=== PATIENT | female | born 1965 | race Two or more races ===

== ENCOUNTER 2024-11-28 11:51 | Inpatient (IN) | payer OTHER ==
[~2024-11-28] VITALS: Ht 167.6 cm; Wt 117.9 kg
[~2024-11-28 11:51] MED LIST: AMOX1TAB16 PO; DOXY100C2 PO
[2024-11-28 12:56] LABS: BASOPHILS # (AUTO) 0.1 K/uL (0.0-0.2); BASOPHILS % (AUTO) 0.5 % (0.0-2.0); EOSINOPHILS # (AUTO) 0.2 K/uL (0.0-0.7); EOSINOPHILS % (AUTO) 1.7 % (0.0-6.0); HEMATOCRIT 25 % (33-45); HEMOGLOBIN 8.3 g/dL (11.5-14.8); LYMPHOCYTES # (AUTO) 1.2 K/uL (0.8-4.8); LYMPHOCYTES % (AUTO) 11.3 % (20.0-44.0); MEAN CORPUSCULAR HEMOGLOBIN 33 PG (26.0-33.0); MEAN CORPUSCULAR HGB CONC 33 g/dl (31.0-36.0); MEAN CORPUSCULAR VOLUME 99 fL (82-100); MONOCYTES # (AUTO) 1.1 K/uL (0.1-1.30); NEUTROPHILS # (AUTO) 7.9 K/uL (1.8-8.9); NEUTROPHILS % (AUTO) 75.5 % (43.0-81.0); PLATELET COUNT (AUTO) 149 K/uL (150-450); RED BLOOD CELL COUNT(AUTO) 2.52 MIL/uL (4.0-5.2); WHITE BLOOD COUNT (AUTO) 10.5 K/uL (4.3-11.0)
[2024-11-28 13:09] LABS: CALCIUM, SERUM 8.1 mg/dL (8.5-10.1); CARBON DIOXIDE 30 mmol/L (21-32); CHLORIDE 97 mmol/L (98-107); CREATININE 3.3 mg/dL (0.6-1.3); GLUCOSE 103 mg/dL (74-106); POTASSIUM 3.8 mmol/L (3.5-5.1); SODIUM SERUM 137 mmol/L (136-145); UREA NITROGEN, BLOOD 23 mg/dL (7-18)
[2024-11-28] MEDS: IV NS 0.9% 1,000 ML BAG IV ONE (14:30)
[2024-11-28] MEDS ORDERED: ASPI-1420 PO (16:09)
[2024-11-28] MEDS ORDERED: CALC0.253 PO (16:09)
[2024-11-28] MEDS ORDERED: MIDO5TAB4 PO (16:09)
[2024-11-28] MEDS ORDERED: FLUD0.1T PO (16:09)
[2024-11-28] MEDS ORDERED: IPRA3AMP23 NEB (16:09)
[2024-11-28] MEDS ORDERED: FOLI0.8T23 PO (16:09)
[2024-11-28] MEDS ORDERED: METO25TA4 PO (16:09)
[2024-11-28] MEDS ORDERED: ERGO500093 PO (16:09)
[2024-11-28] MEDS ORDERED: LEVO150T8 PO (16:09)
[2024-11-28] MEDS ORDERED: FERR325T23 PO (16:09)
[2024-11-28] MEDS: ACETAMINOPHEN ES 500 MG TABLET PO ONE (16:15)
[2024-11-28] MEDS ORDERED: ACETAMINOPHEN ES 500 MG TABLET ONE (16:27)
[2024-11-28 18:00] VITALS: BP 108/60; TEMP 97.9; O2SAT 96
[2024-11-28] MEDS ORDERED: Z GUARD REMEDY 4 OZ OINT TP PRN (18:30)
[2024-11-28] MEDS ORDERED: ONDANSETRON HCL/PF 4 MG/2 ML VIAL IVP PRN (18:30)
[2024-11-28] MEDS ORDERED: ZOLPIDEM TARTRATE 5 MG TABLET PO PRN (18:30)
[2024-11-28 20:00] VITALS: BP 93/43; TEMP 97.7; O2SAT 100
[2024-11-28] MEDS: IV NS 0.9% 1,000 ML IV PRN (20:45)
[2024-11-28] MEDS: ACETAMINOPHEN 325 MG TABLET PO PRN (21:36)
[2024-11-29] VITALS: BP 98/44; TEMP 97.7; O2SAT 100
[2024-11-29 02:41] LABS: OCCULT BLOOD STOOL POSITIVE (NEGATIVE)
[2024-11-29 04:00] VITALS: BP 115/45; TEMP 98.1; O2SAT 99
[2024-11-29] MEDS: PANTOPRAZOLE 40 MG TABLET.DR PO SCH (07:30)
[2024-11-29 07:38] LABS: BASOPHILS % (AUTO) 0.6 % (0.0-2.0); EOSINOPHILS # (AUTO) 0.2 K/uL (0.0-0.7); EOSINOPHILS % (AUTO) 3.1 % (0.0-6.0); HEMATOCRIT 23 % (33-45); HEMOGLOBIN 7.5 g/dL (11.5-14.8); LYMPHOCYTES # (AUTO) 1.1 K/uL (0.8-4.8); LYMPHOCYTES % (AUTO) 13.2 % (20.0-44.0); MEAN CORPUSCULAR HEMOGLOBIN 33 PG (26.0-33.0); MEAN CORPUSCULAR HGB CONC 32 g/dl (31.0-36.0); MEAN CORPUSCULAR VOLUME 101 fL (82-100); MONOCYTES # (AUTO) 1.1 K/uL (0.1-1.30); MONOCYTES % (AUTO) 14.1 % (2.0-12.0); NEUTROPHILS # (AUTO) 5.6 K/uL (1.8-8.9); PLATELET COUNT (AUTO) 165 K/uL (150-450); RED BLOOD CELL COUNT(AUTO) 2.29 MIL/uL (4.0-5.2); RED CELL DISTRIBUTION WIDTH 24.9 % (11.5-15.0); WHITE BLOOD COUNT (AUTO) 8.1 K/uL (4.3-11.0)
[2024-11-29 07:52] LABS: THYROID STIMULATING HORMONE 43.39 uIU/mL (0.358-3.74)
[2024-11-29 07:59] LABS: CALCIUM, SERUM 8.1 mg/dL (8.5-10.1); CREATININE 3.9 mg/dL (0.6-1.3); MAGNESIUM 2.2 mg/dL (1.8-2.4); PHOSPHORUS 2.6 mg/dL (2.5-4.9)
[2024-11-29 08:00] VITALS: BP 112/30; TEMP 98; O2SAT 92
[2024-11-29] MEDS: DAKINS QUARTER STRENGTH (0.125%) 480 ML BOTTLE TOP SCH (10:21)
[2024-11-29] MEDS: THERAHONEY GEL 1.5 OZ TUBE TP SCH (10:22)
[2024-11-29 11:22] LABS: ANISOCYTOSIS 1+; EOSINOPHILS % (MANUAL) 5 % (0-4); HYPOCHROMASIA 1+; LYMPHOCYTES % (MANUAL) 9 % (16-48); MONOCYTES % (MANUAL) 9 % (0-11.0); MYELOCYTES % 1 % (0-0); NEUTROPHILS % (MANUAL) 76 (42-76); PLATELET ESTIMATE ADEQUATE
[2024-11-29 11:23] LABS: TARGET CELLS 1+
[2024-11-29 12:00] VITALS: BP 102/48; TEMP 97.9; O2SAT 95
[2024-11-29] MEDS: LEVOTHYROXINE SODIUM 75 MCG TABLET PO SCH (14:30)
[2024-11-29 16:00] VITALS: BP 96/83; TEMP 98.1; O2SAT 95
[2024-11-29] MEDS: FLUDROCORTISONE 0.1 MG TABLET PO SCH (17:06)
[2024-11-29] MEDS: FERROUS SULFATE (325 MG) 325 MG/TAB TABLET PO SCH (17:06)
[2024-11-29] MEDS: MIDODRINE HCL (5MG) 5 MG TABLET PO SCH (17:31)
[2024-11-29 20:00] VITALS: BP 93/65; TEMP 98.2; O2SAT 100
[2024-11-30] VITALS: BP 107/54; TEMP 98.2; O2SAT 100
[2024-11-30 04:00] VITALS: BP 97/56; TEMP 97.9; O2SAT 98
[2024-11-30 07:00] LABS: BASOPHILS % (AUTO) 0.6 % (0.0-2.0); EOSINOPHILS # (AUTO) 0.3 K/uL (0.0-0.7); EOSINOPHILS % (AUTO) 3.2 % (0.0-6.0); HEMATOCRIT 24 % (33-45); HEMOGLOBIN 7.8 g/dL (11.5-14.8); LYMPHOCYTES # (AUTO) 1.2 K/uL (0.8-4.8); LYMPHOCYTES % (AUTO) 15.3 % (20.0-44.0); MEAN CORPUSCULAR HEMOGLOBIN 33 PG (26.0-33.0); MEAN CORPUSCULAR HGB CONC 33 g/dl (31.0-36.0); MEAN CORPUSCULAR VOLUME 100 fL (82-100); MONOCYTES # (AUTO) 1.4 K/uL (0.1-1.30); MONOCYTES % (AUTO) 17.4 % (2.0-12.0); NEUTROPHILS # (AUTO) 5.2 K/uL (1.8-8.9); NEUTROPHILS % (AUTO) 63.5 % (43.0-81.0); PLATELET COUNT (AUTO) 159 K/uL (150-450); RED BLOOD CELL COUNT(AUTO) 2.39 MIL/uL (4.0-5.2); RED CELL DISTRIBUTION WIDTH 25.8 % (11.5-15.0); WHITE BLOOD COUNT (AUTO) 8.1 K/uL (4.3-11.0)
[2024-11-30 07:12] LABS: CALCIUM, SERUM 8.1 mg/dL (8.5-10.1); CREATININE 4.7 mg/dL (0.6-1.3); MAGNESIUM 2.2 mg/dL (1.8-2.4); PHOSPHORUS 2.8 mg/dL (2.5-4.9); POTASSIUM 3.7 mmol/L (3.5-5.1)
[2024-11-30 08:00] VITALS: BP 110/47; TEMP 99.7; O2SAT 99
[2024-11-30] MEDS: FOLIC ACID 1 MG TABLET PO SCH (08:50)
[2024-11-30] MEDS: ASPIRIN EC 81 MG TABLET.DR PO SCH (08:50)
[2024-11-30] MEDS: CALCITRIOL 0.25 MCG CAPSULE PO SCH (08:50)
[2024-11-30] MEDS: METOPROLOL SUCCINATE 25 MG TAB.SR.24H PO SCH (08:51)
[2024-11-30] MEDS: ENSURE ENLIVE 237 ML LIQUID (VANILLA) PO SCH (09:00)
[2024-11-30 10:25] LABS: ANISOCYTOSIS 1+; EOSINOPHILS % (MANUAL) 3 % (0-4); HYPOCHROMASIA 1+; LYMPHOCYTES % (MANUAL) 10 % (16-48); MONOCYTES % (MANUAL) 25 % (0-11.0); NEUTROPHILS % (MANUAL) 62 (42-76); PLATELET ESTIMATE ADEQUATE
[2024-11-30 12:00] VITALS: BP 105/44; TEMP 98.8; O2SAT 99
[2024-11-30] MEDS ORDERED: ALBUMIN 25% 25 GM in PREMIX 1 EA IV PRN (13:30)
[2024-11-30 16:00] VITALS: BP 120/66; TEMP 99.5; O2SAT 94
[2024-11-30 18:31] VITALS: BP 104/55; TEMP 99; O2SAT 99
== END 2024-11-30 18:44 | disposition home health service (06) | DRG 280 ==
LOC: ER 12:03 → TELE1 17:22
PROC: 5A1D70Z Performance of Urinary Filtration, Intermittent, Less than 6 Hours Per Day (ICD-10-PCS; principal; 2024-11-30)
DX: I95.3 Hypotension of hemodialysis (principal); L89.313 Pressure ulcer of right buttock, stage 3; I21.A1 Myocardial infarction type 2; N18.6 End stage renal disease; I13.2 Hypertensive heart and chronic kidney disease with heart failure and with stage 5 chronic kidney disease, or end stage renal disease; T81.30XA Disruption of wound, unspecified, initial encounter; J90 Pleural effusion, not elsewhere classified; E87.8 Other disorders of electrolyte and fluid balance, not elsewhere classified; I50.9 Heart failure, unspecified; Z99.2 Dependence on renal dialysis; E11.22 Type 2 diabetes mellitus with diabetic chronic kidney disease; L89.326 Pressure-induced deep tissue damage of left buttock; E78.5 Hyperlipidemia, unspecified; G89.29 Other chronic pain; Z74.01 Bed confinement status; Z91.048 Other nonmedicinal substance allergy status; Z98.890 Other specified postprocedural states; Z79.51 Long term (current) use of inhaled steroids; Z79.82 Long term (current) use of aspirin; M89.8X9 Other specified disorders of bone, unspecified site; Z79.899 Other long term (current) drug therapy; E66.01 Morbid (severe) obesity due to excess calories; E03.9 Hypothyroidism, unspecified; D64.9 Anemia, unspecified; Y83.8 Other surgical procedures as the cause of abnormal reaction of the patient, or of later complication, without mention of misadventure at the time of the procedure; Y92.009 Unspecified place in unspecified non-institutional (private) residence as the place of occurrence of the external cause
CPT/HCPCS: 36415; 71045-TC; 80048-TC; 80061-TC; 82272-TC; 83735-TC; 84100-TC; 84439-TC; 84443-TC; 84484-TC; 85025-TC; 86850-TC; 90935-TC; 93307-TC; 97110-TC; 97530-TC; A4216; A6213; A6253; G0378; J7030; J7040; P9047